=== PATIENT | female | born 1940 | race Caucasian/White ===

== ENCOUNTER 2018-12-07 21:01 | Emergency (ER) | payer MEDICARE, BC ==
[~2018-12-07] VITALS: Ht 149.9 cm; Wt 41.0 kg
[2018-12-07 21:09] VITALS: BP 131/84
--- NOTE | 2018-12-07 21:41 | NUR ---
Pt requested not to answer any questions right now. Her son is in the ICU. Unable to complete assessment. Niece at bedside.
[2018-12-07] MEDS ORDERED: guaiFENesin/codeine phos 10ml UD oral syrup PO ONE (22:10)
[2018-12-07] MEDS ORDERED: AZIT250T2 PO (22:12)
[2018-12-07] MEDS ORDERED: CODE473L3 PO (22:12)
== END 2018-12-07 22:47 | disposition home or self-care (01) ==
LOC: ER 21:02
DX: R05 Cough (principal); Z79.2 Long term (current) use of antibiotics; Z88.8 Allergy status to other drugs, medicaments and biological substances; Z88.0 Allergy status to penicillin
CPT/HCPCS: 71045; 99283

== ENCOUNTER 2020-05-04 09:04 | Emergency (ER) | payer BC, MEDICARE ==
[~2020-05-04 09:04] MED LIST: CODE473L3 PO
[2020-05-04 09:11] VITALS: BP 129/90
--- NOTE | 2020-05-04 09:38 | NUR ---
While MD was at bedside, pt became agtitated and stated that she "needed to leave", then stated to her friend "he thinks nothing is wrong, so I need to leave". Pt was discharge ready, however left prior to receiving discharge instructions.
== END 2020-05-04 09:43 | disposition home or self-care (01) ==
LOC: ER 09:05
DX: F41.9 Anxiety disorder, unspecified (principal); R22.0 Localized swelling, mass and lump, head; Z88.8 Allergy status to other drugs, medicaments and biological substances
CPT/HCPCS: 99281

== ENCOUNTER 2020-08-07 13:13 | Emergency (ER) | payer BC ==
[~2020-08-07] VITALS: Ht 149.9 cm; Wt 45.3 kg
[2020-08-07] MEDS ORDERED: mineral oil 133ml enema RC PRN (15:55)
[2020-08-07] MEDS ORDERED: fentaNYL/PF 50MCG/1 ML 2ML syringe IV ONE (15:55)
[2020-08-07] MEDS: diatr meglu/diatrizoate 30ml oral sol.-(3 dose) bottle PO SCH ×3 (16:17→17:52)
[2020-08-07 16:19] LABS: BASOPHILS # (AUTO) 0.1 X10'3 (0-0.2); BASOPHILS % (AUTO) 0.8 % (0-1); EOSINOPHILS # (AUTO) 0.2 X10'3 (0-0.9); EOSINOPHILS % (AUTO) 2.3 % (0-6); HEMATOCRIT 36.9 % (35.0-45.0); HEMOGLOBIN 12.4 g/dl (12.0-16.0); LYMPHOCYTES # (AUTO) 1.5 X10'3 (1.1-4.8); LYMPHOCYTES % (AUTO) 22.7 % (21-51); MEAN CORPUSCULAR HEMOGLOBIN 31.5 PG (27.0-31.0); MEAN CORPUSCULAR HGB CONC 33.6 g/dL (33.0-36.5); MEAN CORPUSCULAR VOLUME 93.7 FL (78-98); MEAN PLATELET VOLUME 6.5 FL (7.4-10.4); MONOCYTES # (AUTO) 0.4 X10'3 (0-0.9); NEUTROPHILS # (AUTO) 4.6 X10'3 (1.8-7.7); NEUTROPHILS % (AUTO) 68.2 % (42-75); PLATELET COUNT 297 X10'3 (140-440); RED BLOOD COUNT 3.94 X10'6 (4.20-5.60); RED CELL DISTRIBUTION WIDTH 14.1 % (11.5-14.5); WHITE BLOOD COUNT 6.7 X10'3 (4.5-11.0)
[2020-08-07 16:34] LABS: ALANINE AMINOTRANSFERASE 21 U/L (12-78); ALBUMIN 3.7 G/DL (3.4-5.0); ALBUMIN/GLOBULIN RATIO 1.1 (1.1-1.5); ALKALINE PHOSPHATASE 91 IU/L (46-116); ANION GAP 10 (8-16); ASPARTATE AMINO TRANSFERASE 22 U/L (10-37); BILIRUBIN,TOTAL 0.7 MG/DL (0.1-1.0); BLOOD UREA NITROGEN 12 MG/DL (7-18); BUN/CREATININE RATIO 17.9 (6.6-38.0); CHLORIDE 106 MMOL/L (99-107); CREATININE 0.67 MG/DL (0.40-0.90); GLUCOSE 139 MG/DL (70-104); POTASSIUM 3.9 MMOL/L (3.5-5.1); SODIUM 143 MMOL/L (135-145); TOTAL CARBON DIOXIDE 27.4 MMOL/L (24-32); eGFR 85 ML/MIN
[2020-08-07] MEDS ORDERED: iohexol 300mg/ml 100ml inj. ONE (16:39)
--- NOTE | 2020-08-07 17:07 | NUR ---
Enema administered to patient, no BM. Dr. Peace aware.
[2020-08-07 18:34] LABS: CLARITY,URINE SLIGHTLY CLOUDY (Clear); COLOR,URINE YELLOW (Yellow); GLUCOSE, URINE NEGATIVE (Neg); KETONES,URINE NEGATIVE (Neg); LEUKOCYTE ESTERASE ,URINE TRACE (Neg); NITRITES, URINE NEGATIVE (Neg); OCCULT BLOOD,URINE NEGATIVE (Neg); PH,URINE 7.5 (4.8-8.0); PROTEIN,URINE NEGATIVE (Neg); UROBILINOGEN,URINE 0.2 E.U/dL (0.2-1.0)
[2020-08-07 18:48] LABS: UA COLLECTION TYPE CLN CATCH MIDSTREAM
[2020-08-07 18:59] LABS: BACTERIA,URINE FEW /HPF (Neg); MUCUS STRANDS NONE SEEN /LPF (Neg); RBC,URINE NONE SEEN /HPF (0-2); WBC,URINE 0-4 /HPF (0-4)
[2020-08-07 19:01] LABS: SQUAMOUS EPITHELIAL CELL,UR FEW /LPF (FEW)
[2020-08-07 19:20] VITALS: BP 107/78
== END 2020-08-07 19:22 | disposition home or self-care (01) ==
LOC: ER 13:14
DX: K59.00 Constipation, unspecified (principal); R11.0 Nausea; K62.89 Other specified diseases of anus and rectum; R10.84 Generalized abdominal pain; Z88.8 Allergy status to other drugs, medicaments and biological substances; Z79.899 Other long term (current) drug therapy
CPT/HCPCS: 36415; 74177; 80053; 81001; 85025; 87088; 96374; 99285; J3010; Q9963; Q9967; 87077; 87186

== ENCOUNTER 2020-10-21 23:38 | Emergency (ER) | payer BC ==
[~2020-10-21] VITALS: Ht 152.4 cm; Wt 59.1 kg
[2020-10-21 23:41] VITALS: BP 157/122
--- NOTE | 2020-10-22 00:17 | NUR ---
Patient complains of anxiety prior to arrival because she wasn't wearing her special eye protection. She reports no symptoms at all at this time.
[2020-10-22] MEDS ORDERED: acetaminophen 325mg tablet PO ONE (01:25)
== END 2020-10-22 02:09 | disposition home or self-care (01) ==
LOC: ER 23:38
DX: R07.89 Other chest pain (principal); F41.9 Anxiety disorder, unspecified; R07.81 Pleurodynia; Z88.8 Allergy status to other drugs, medicaments and biological substances; Z79.899 Other long term (current) drug therapy
CPT/HCPCS: 71045; 99283

== ENCOUNTER 2024-04-09 11:31 | Emergency (ER) | payer BC ==
[~2024-04-09] VITALS: Ht 149.9 cm; Wt 2.2 kg
[2024-04-09 11:35] VITALS: TEMP 98.4
[2024-04-09 12:01] LABS: BASOPHILS % (AUTO) 0.8 % (0-1); EOSINOPHILS # (AUTO) 0.2 X10'3 (0-0.9); EOSINOPHILS % (AUTO) 3.6 % (0-6); HEMOGLOBIN 13.9 g/dl (12.0-16.0); LYMPHOCYTES # (AUTO) 1.4 X10'3 (1.1-4.8); MEAN CORPUSCULAR HEMOGLOBIN 31.9 PG (27.0-31.0); MEAN CORPUSCULAR HGB CONC 33.2 g/dL (33.0-36.5); MEAN PLATELET VOLUME 6.6 FL (7.4-10.4); MONOCYTES # (AUTO) 0.3 X10'3 (0-0.9); NEUTROPHILS # (AUTO) 3.6 X10'3 (1.8-7.7); NEUTROPHILS % (AUTO) 64.6 % (42-75); PLATELET COUNT 334 X10'3 (140-440); RED BLOOD COUNT 4.37 X10'6 (4.20-5.60); RED CELL DISTRIBUTION WIDTH 14.7 % (11.5-14.5); WHITE BLOOD COUNT 5.6 X10'3 (4.5-11.0)
[2024-04-09 12:14] LABS: ALANINE AMINOTRANSFERASE 21 U/L (12-78); ALBUMIN 3.1 G/DL (3.4-5.0); ALBUMIN/GLOBULIN RATIO 0.9 (1.1-1.5); ALKALINE PHOSPHATASE 112 IU/L (46-116); ANION GAP 4 (8-16); ASPARTATE AMINO TRANSFERASE 23 U/L (10-37); BILIRUBIN,TOTAL 0.6 MG/DL (0.1-1.0); BLOOD UREA NITROGEN 10 MG/DL (7-18); BUN/CREATININE RATIO 14.9 (10.0-20.0); CALCIUM 8.6 MG/DL (8.5-10.1); CHLORIDE 106 MMOL/L (99-107); CREATININE 0.67 MG/DL (0.40-0.90); GLUCOSE 109 MG/DL (70-104); POTASSIUM 3.5 MMOL/L (3.5-5.1); SODIUM 141 MMOL/L (135-145); TOTAL CARBON DIOXIDE 30.7 MMOL/L (24-32); TOTAL PROTEIN 6.4 G/DL (6.4-8.2); eCRCL 2 ML/MIN; eGFR 84 ML/MIN
[2024-04-09 12:21] LABS: PRO BRAIN NATRIURETIC PEPTIDE 103 PG/ML (0-450)
[2024-04-09 12:49] LABS: BILIRUBIN,URINE NEGATIVE (Neg); CLARITY,URINE CLEAR (Clear); COLOR,URINE YELLOW (Yellow); GLUCOSE, URINE NEGATIVE (Neg); KETONES,URINE NEGATIVE (Neg); LEUKOCYTE ESTERASE ,URINE NEGATIVE (Neg); NITRITES, URINE NEGATIVE (Neg); OCCULT BLOOD,URINE TRACE-INTACT (Neg); PROTEIN,URINE 100 mg/dl (Neg); UROBILINOGEN,URINE 0.2 E.U/dL (0.2-1.0)
[2024-04-09 12:54] LABS: UA COLLECTION TYPE NON-SPECIFIED
[2024-04-09 12:55] LABS: BACTERIA,URINE 1+ /HPF (Neg); SQUAMOUS EPITHELIAL CELL,UR FEW /LPF (FEW); WBC,URINE 0-4 /HPF (0-4)
[2024-04-09 13:23] LABS: THYROID STIMULATING HORMONE 31.83 ulU/ml (0.34-4.50)
[2024-04-09] MEDS: acetaminophen 325mg tablet PO ONE (13:48)
[2024-04-09 14:00] VITALS: BP 150/98; PULSE 72; RESP 15; O2SAT 95
== END 2024-04-09 14:00 | disposition home or self-care (01) ==
LOC: ER 11:32
DX: I48.0 Paroxysmal atrial fibrillation (principal); E07.9 Disorder of thyroid, unspecified; Z88.8 Allergy status to other drugs, medicaments and biological substances
CPT/HCPCS: 36415; 70450; 71045; 80053; 81001; 83880; 84145; 84443; 84484; 85025; 93005; 99285

== ENCOUNTER 2024-04-13 12:56 | Inpatient (IN) | payer BC ==
[~2024-04-13] VITALS: Ht 149.9 cm; Wt 36.3 kg
[2024-04-13 13:59] LABS: BASOPHILS # (AUTO) 0.1 X10'3 (0-0.2); BASOPHILS % (AUTO) 1.2 % (0-1); EOSINOPHILS # (AUTO) 0.2 X10'3 (0-0.9); EOSINOPHILS % (AUTO) 3.5 % (0-6); HEMOGLOBIN 13.4 g/dl (12.0-16.0); LYMPHOCYTES # (AUTO) 1.4 X10'3 (1.1-4.8); LYMPHOCYTES % (AUTO) 25.4 % (21-51); MEAN CORPUSCULAR HGB CONC 33.4 g/dL (33.0-36.5); MEAN CORPUSCULAR VOLUME 95.8 FL (78-98); MEAN PLATELET VOLUME 6.9 FL (7.4-10.4); MONOCYTES # (AUTO) 0.4 X10'3 (0-0.9); MONOCYTES % (AUTO) 7.7 % (2-12); NEUTROPHILS # (AUTO) 3.3 X10'3 (1.8-7.7); NEUTROPHILS % (AUTO) 62.2 % (42-75); PLATELET COUNT 337 X10'3 (140-440); RED BLOOD COUNT 4.17 X10'6 (4.20-5.60); RED CELL DISTRIBUTION WIDTH 15.1 % (11.5-14.5); WHITE BLOOD COUNT 5.4 X10'3 (4.5-11.0)
[2024-04-13 14:13] LABS: ALBUMIN 2.9 G/DL (3.4-5.0); ANION GAP 4 (8-16); BLOOD UREA NITROGEN 16 MG/DL (7-18); BUN/CREATININE RATIO 25.8 (10.0-20.0); CALCIUM 8.7 MG/DL (8.5-10.1); CHLORIDE 106 MMOL/L (99-107); CREATININE 0.62 MG/DL (0.40-0.90); GLUCOSE 86 MG/DL (70-104); MAGNESIUM 2.3 MG/DL (1.5-2.4); POTASSIUM 3.9 MMOL/L (3.5-5.1); PRO BRAIN NATRIURETIC PEPTIDE 110 PG/ML (0-450); SODIUM 141 MMOL/L (135-145); TOTAL CARBON DIOXIDE 30.9 MMOL/L (24-32); eCRCL 40 ML/MIN; eGFR > 90 ML/MIN
[2024-04-13] MEDS ORDERED: ACYC-129 PO (14:16)
[2024-04-13] MEDS ORDERED: LEVO100T9 PO (14:16)
[2024-04-13] MEDS: HYDROcodone/acetaminophen 10/325mg tab PO ONE (16:26)
[2024-04-13] MEDS: LORazepam 0.5 MG tablet PO PRN (16:27)
[2024-04-13] MEDS ORDERED: magnesium Cl slow-release 64mg tablet PO PRN (16:40)
[2024-04-13] MEDS ORDERED: acetaminophen 325mg tablet PO PRN (16:40)
[2024-04-13] MEDS ORDERED: magnesium sulf-water 4G/100mL 100 ML IV PRN (16:40)
[2024-04-13] MEDS ORDERED: magnesium sulf-water 2g/50mL 50 ML IV PRN (16:40)
[2024-04-13] MEDS ORDERED: morphine 2 MG/ML inj. syringe IV PRN (16:40)
[2024-04-13] MEDS ORDERED: potassium Cl 20 mEq SR tablet PO PRN ×2 (16:40)
[2024-04-13] MEDS ORDERED: potassium Cl 40MEQ/1/2NS 520ml 520 ML IV PRN (16:40)
[2024-04-13] MEDS: PERFLUTREN PROTEIN-A MICROSPHR (Optison) 0.22 MG/ML 3ML VIAL IV ONE (19:12)
[2024-04-13] MEDS: K and/or MAG REPLACEMENT MC SCH (20:00)
[2024-04-14 07:42] LABS: ALBUMIN 2.6 G/DL (3.4-5.0); ANION GAP 6 (8-16); BLOOD UREA NITROGEN 11 MG/DL (7-18); CHLORIDE 105 MMOL/L (99-107); CREATININE 0.61 MG/DL (0.40-0.90); GLUCOSE 78 MG/DL (70-104); MAGNESIUM 2.2 MG/DL (1.5-2.4); POTASSIUM 3.8 MMOL/L (3.5-5.1); SODIUM 138 MMOL/L (135-145); TOTAL CARBON DIOXIDE 27.1 MMOL/L (24-32); eCRCL 41 ML/MIN; eGFR > 90 ML/MIN
[2024-04-14 08:31] LABS: BASOPHILS % (AUTO) 0.9 % (0-1); EOSINOPHILS # (AUTO) 0.2 X10'3 (0-0.9); EOSINOPHILS % (AUTO) 4.2 % (0-6); HEMATOCRIT 40.5 % (35.0-45.0); HEMOGLOBIN 13.4 g/dl (12.0-16.0); LYMPHOCYTES # (AUTO) 1.5 X10'3 (1.1-4.8); MEAN CORPUSCULAR HEMOGLOBIN 32.1 PG (27.0-31.0); MEAN CORPUSCULAR HGB CONC 33.1 g/dL (33.0-36.5); MEAN CORPUSCULAR VOLUME 96.9 FL (78-98); MEAN PLATELET VOLUME 6.8 FL (7.4-10.4); MONOCYTES # (AUTO) 0.4 X10'3 (0-0.9); MONOCYTES % (AUTO) 6.9 % (2-12); NEUTROPHILS # (AUTO) 3.1 X10'3 (1.8-7.7); PLATELET COUNT 236 X10'3 (140-440); RED BLOOD COUNT 4.18 X10'6 (4.20-5.60); RED CELL DISTRIBUTION WIDTH 15.1 % (11.5-14.5); WHITE BLOOD COUNT 5.2 X10'3 (4.5-11.0)
[2024-04-14 10:00] VITALS: BP 126/90; PULSE 74; RESP 17; TEMP 97.8; O2SAT 95
[2024-04-14] MEDS: HYDROcodone/acetaminophen 5mg/325mg tablet PO PRN (15:03)
[2024-04-14] MEDS: meclizine 12.5mg tablet PO ONE (16:10)
[2024-04-14] MEDS: LORazepam 0.5 MG tablet PO PRN (16:30)
[2024-04-14] MEDS ORDERED: PRED5DRO3 OP (18:48)
[2024-04-14 19:00] VITALS: BP 117/74; PULSE 69; RESP 16; TEMP 97.8; O2SAT 96
[2024-04-14] MEDS ORDERED: MED LIST UNOBTAINABL OP (19:05)
[2024-04-14 20:00] VITALS: BP_SYST 119; BP_SYST 132; BP_SYST 138; BP_DIAS 77; BP_DIAS 80; BP_DIAS 96; PULSE 63; PULSE 67; PULSE 77
[2024-04-14] MEDS: heparin, porcine 5000 units/ml vial SQ SCH (21:10)
[2024-04-14 22:00] VITALS: BP 138/80; PULSE 63; RESP 18; TEMP 97.6; O2SAT 95
[2024-04-15 06:00] VITALS: BP 129/76; PULSE 57; RESP 15; TEMP 96.1; O2SAT 98
[2024-04-15 06:52] LABS: BASOPHILS # (AUTO) 0.1 X10'3 (0-0.2); EOSINOPHILS # (AUTO) 0.2 X10'3 (0-0.9); MONOCYTES # (AUTO) 0.4 X10'3 (0-0.9); NEUTROPHILS # (AUTO) 2.5 X10'3 (1.8-7.7); RED CELL DISTRIBUTION WIDTH 14.8 % (11.5-14.5); WHITE BLOOD COUNT 4.7 X10'3 (4.5-11.0)
[2024-04-15 06:54] LABS: EOSINOPHILS % (AUTO) 3.5 % (0-6); HEMATOCRIT 39.3 % (35.0-45.0); HEMOGLOBIN 13.1 g/dl (12.0-16.0); LYMPHOCYTES # (AUTO) 1.6 X10'3 (1.1-4.8); MEAN CORPUSCULAR HEMOGLOBIN 32.1 PG (27.0-31.0); MEAN CORPUSCULAR HGB CONC 33.4 g/dL (33.0-36.5); MEAN CORPUSCULAR VOLUME 96.2 FL (78-98); MEAN PLATELET VOLUME 6.6 FL (7.4-10.4); MONOCYTES % (AUTO) 8.4 % (2-12); NEUTROPHILS % (AUTO) 53.1 % (42-75); PLATELET COUNT 302 X10'3 (140-440); RED BLOOD COUNT 4.09 X10'6 (4.20-5.60)
[2024-04-15 07:33] LABS: ALBUMIN 2.4 G/DL (3.4-5.0); ANION GAP 2 (8-16); BLOOD UREA NITROGEN 15 MG/DL (7-18); CALCIUM 8.1 MG/DL (8.5-10.1); CHLORIDE 104 MMOL/L (99-107); CREATININE 0.75 MG/DL (0.40-0.90); GLUCOSE 79 MG/DL (70-104); MAGNESIUM 2.2 MG/DL (1.5-2.4); POTASSIUM 3.9 MMOL/L (3.5-5.1); SODIUM 136 MMOL/L (135-145); TOTAL CARBON DIOXIDE 29.8 MMOL/L (24-32); eCRCL 33 ML/MIN; eGFR 74 ML/MIN
[2024-04-15 07:36] LABS: THYROID STIMULATING HORMONE 69.22 ulU/ml (0.34-4.50)
[2024-04-15 07:45] VITALS: RESP 18
[2024-04-15] MEDS: levoTHYROXINE 100mcg tablet PO SCH (07:47)
[2024-04-15 10:00] VITALS: BP 102/71; PULSE 63; RESP 14; TEMP 98.1; O2SAT 95
[2024-04-15 11:18] LABS: FREE T4 (FREE THYROXINE) 0.66 NG/DL (0.73-1.40)
[2024-04-15] MEDS: LORazepam 2 mg/ml vial IM ONE (14:45)
[2024-04-15] MEDS: LEVOTHYROXINE SODIUM 100 MCG/5 ML injection IV ONE (16:01)
[2024-04-15 18:00] VITALS: BP 128/74; PULSE 69; RESP 16; TEMP 97.7; O2SAT 95
[2024-04-15] MEDS: lactose-reduced food (Ensure Enlive) - 237ml bottle PO SCH (18:00)
[2024-04-15 20:00] VITALS: BP_SYST 102; BP_SYST 123; BP_SYST 130; BP_DIAS 65; BP_DIAS 77; BP_DIAS 88; PULSE 71; PULSE 72; PULSE 78
[2024-04-15] MEDS ORDERED: PRED5DRO23 EACHEYE (20:56)
[2024-04-15] MEDS: Prednisolone Acet 1% Eye Drop EACHEYE PRN (21:37)
[2024-04-15 22:00] VITALS: BP 123/65; PULSE 71; RESP 15; TEMP 97.7; O2SAT 97
[2024-04-16] VITALS (10 sets, daily range): BP systolic 100–154; BP diastolic 65–94; PULSE 63–85; RESP 13–16; TEMP 97.1–98.7; O2SAT 94–98
[2024-04-16 06:11] LABS: ALBUMIN 2.5 G/DL (3.4-5.0); ANION GAP 4 (8-16); BLOOD UREA NITROGEN 16 MG/DL (7-18); BUN/CREATININE RATIO 30.2 (10.0-20.0); CALCIUM 8.4 MG/DL (8.5-10.1); CHLORIDE 106 MMOL/L (99-107); CREATININE 0.53 MG/DL (0.40-0.90); GLUCOSE 87 MG/DL (70-104); MAGNESIUM 2.1 MG/DL (1.5-2.4); POTASSIUM 3.7 MMOL/L (3.5-5.1); SODIUM 139 MMOL/L (135-145); TOTAL CARBON DIOXIDE 29.1 MMOL/L (24-32); eCRCL 47 ML/MIN; eGFR > 90 ML/MIN
[2024-04-16 06:19] LABS: BASOPHILS # (AUTO) 0.1 X10'3 (0-0.2); BASOPHILS % (AUTO) 1.4 % (0-1); EOSINOPHILS # (AUTO) 0.1 X10'3 (0-0.9); EOSINOPHILS % (AUTO) 3.4 % (0-6); HEMATOCRIT 39.2 % (35.0-45.0); HEMOGLOBIN 13.1 g/dl (12.0-16.0); LYMPHOCYTES # (AUTO) 1.4 X10'3 (1.1-4.8); LYMPHOCYTES % (AUTO) 36.3 % (21-51); MEAN CORPUSCULAR HEMOGLOBIN 31.9 PG (27.0-31.0); MEAN CORPUSCULAR HGB CONC 33.5 g/dL (33.0-36.5); MEAN CORPUSCULAR VOLUME 95.2 FL (78-98); MEAN PLATELET VOLUME 6.7 FL (7.4-10.4); MONOCYTES # (AUTO) 0.3 X10'3 (0-0.9); MONOCYTES % (AUTO) 8.2 % (2-12); NEUTROPHILS % (AUTO) 50.7 % (42-75); PLATELET COUNT 297 X10'3 (140-440); RED BLOOD COUNT 4.12 X10'6 (4.20-5.60); RED CELL DISTRIBUTION WIDTH 14.7 % (11.5-14.5); WHITE BLOOD COUNT 3.9 X10'3 (4.5-11.0)
[2024-04-16] MEDS: levoTHYROXINE 75mcg tablet PO SCH (07:00)
[2024-04-16] MEDS: [UNRECOGNIZED DRUG - OTHER] EACHEYE SCH (12:40)
[2024-04-16] MEDS: ketorolac trometh 30MG/ML vial 30 MG/ML VIAL IV PRN (13:16)
[2024-04-16] MEDS: sennosides/docusate sodium tablet PO SCH (16:41)
[2024-04-16] MEDS: docusate sod 100mg capsule PO STA (20:28)
[2024-04-16] MEDS: ondansetron/PF 4mg/2ml inj IV PRN (20:37)
[2024-04-17 01:00] VITALS: BP_SYST 108; BP_SYST 117; BP_DIAS 69; BP_DIAS 82
[2024-04-17] MEDS: bisacodyl 10mg suppository rectal RC STA (04:54)
[2024-04-17 06:00] VITALS: BP 117/73; PULSE 56; RESP 15; TEMP 96.8; O2SAT 95
[2024-04-17 06:36] LABS: BASOPHILS # (AUTO) 0.1 X10'3 (0-0.2); BASOPHILS % (AUTO) 0.8 % (0-1); EOSINOPHILS # (AUTO) 0.2 X10'3 (0-0.9); EOSINOPHILS % (AUTO) 2.2 % (0-6); HEMATOCRIT 41.5 % (35.0-45.0); HEMOGLOBIN 13.9 g/dl (12.0-16.0); LYMPHOCYTES # (AUTO) 0.9 X10'3 (1.1-4.8); LYMPHOCYTES % (AUTO) 11.4 % (21-51); MEAN CORPUSCULAR HEMOGLOBIN 32.5 PG (27.0-31.0); MEAN CORPUSCULAR HGB CONC 33.5 g/dL (33.0-36.5); MONOCYTES # (AUTO) 0.5 X10'3 (0-0.9); MONOCYTES % (AUTO) 5.9 % (2-12); NEUTROPHILS # (AUTO) 6.5 X10'3 (1.8-7.7); NEUTROPHILS % (AUTO) 79.7 % (42-75); PLATELET COUNT 304 X10'3 (140-440); RED BLOOD COUNT 4.28 X10'6 (4.20-5.60); RED CELL DISTRIBUTION WIDTH 14.9 % (11.5-14.5); WHITE BLOOD COUNT 8.1 X10'3 (4.5-11.0)
[2024-04-17 06:48] LABS: ALBUMIN 2.7 G/DL (3.4-5.0); ANION GAP 5 (8-16); BLOOD UREA NITROGEN 22 MG/DL (7-18); BUN/CREATININE RATIO 34.9 (10.0-20.0); CHLORIDE 102 MMOL/L (99-107); CREATININE 0.63 MG/DL (0.40-0.90); GLUCOSE 129 MG/DL (70-104); MAGNESIUM 2.1 MG/DL (1.5-2.4); SODIUM 136 MMOL/L (135-145); TOTAL CARBON DIOXIDE 29.4 MMOL/L (24-32); eCRCL 39 ML/MIN; eGFR 90 ML/MIN
[2024-04-17 08:59] VITALS: RESP 15; O2SAT 95
[2024-04-17 10:00] VITALS: BP_SYST 100; BP_SYST 111; BP_DIAS 65; BP_DIAS 67; PULSE 79; PULSE 92; RESP 18; TEMP 98.5; O2SAT 96
== END 2024-04-17 13:00 | DRG 149 ==
LOC: ER 12:56 → ED HOLD 16:43 → EDBEDREQ 04-14 02:57 → ORTHO 4S 04-14 09:31
PROVIDERS: ADMIT Internal Medicine; ATTEND Internal Medicine
DX: H81.10 Benign paroxysmal vertigo, unspecified ear (principal); E43 Unspecified severe protein-calorie malnutrition; Z68.1 Body mass index [BMI] 19.9 or less, adult; F41.9 Anxiety disorder, unspecified; M53.3 Sacrococcygeal disorders, not elsewhere classified; I48.91 Unspecified atrial fibrillation; G43.909 Migraine, unspecified, not intractable, without status migrainosus; E03.9 Hypothyroidism, unspecified; Z87.891 Personal history of nicotine dependence; Z88.8 Allergy status to other drugs, medicaments and biological substances; Z88.0 Allergy status to penicillin; Z91.199 Patient's noncompliance with other medical treatment and regimen due to unspecified reason; R55 Syncope and collapse
CPT/HCPCS: 36415; 70551; 71045; 72220; 80048; 83735; 83880; 84439; 84443; 84484; 85025; 93005; 93306; 93880; 97110; 97116; 97162; 97530; 99285; G0378; J1644; J1885; J2405; J3490; J8597

== ENCOUNTER 2024-11-29 12:06 | Emergency (ER) | payer BC ==
[~2024-11-29] VITALS: Ht 149.9 cm; Wt 37.7 kg
[~2024-11-29 12:06] MED LIST changes: -CODE473L3 PO; +LEVO100T9 PO; +MED LIST UNOBTAINABL OP; +PRED5DRO23 EACHEYE
--- NOTE | 2024-11-29 12:28 | Physician Documentation ---
History of Present Illness ~ Chief Complaint: Urinary Symptoms Stated Complaint: UTI Time Seen by MD: 12:19 OK to notify your PCP?: Yes Primary Medical Doctor: Residency Service Source: patient, RN/MD, EMS, RN notes reviewed, EMS notes reviewed, old records Mode of Arrival: EMS Exam Limitations: no limitations HPI This patient complains of four or five days of dysuria frequency urgency. She states when she pees at [place] and just comes out. She has a history of UTIs in the past. She denies any fevers or chills. No CVA tenderness or back pains does not feel 100% rate now feels a bit ill. She is otherwise in good health has no other complaints. She is now here for evaluation she came by ambulance she was seen in bed 9 Medication Reconciliation Allergies: Coded Allergies: lithium (Verified Allergy, Unknown, THROAT SWELLING, 11/29/24) Uncoded Allergies: PENICILLIN (Allergy, Unknown, THROAT SWELLING, 12/07/18) Scheduled Levothyroxine Sodium (Levothyroxine Sodium), 1 TAB PO DAILY, (Reported) Nitrofurantoin Macrocrystal (Nitrofurantoin), 1 CAP PO Q12H Non-Formulary (Med List Unobtainable), OP Q4H, (Reported) Phenazopyridine HCl (Pyridium), 1 TAB PO Q8H Scheduled PRN Prednisolone Acetate/Pf (Prednisolone Acet 1% Eye Drop), 1 DROP EACHEYE Q6H PRN for allergies, (Reported) Past Medical History Past Medical History: Glaucoma Past Surgical History: noncontributory Alcohol Use: None Drug Use: none Lives In: Home Review of Systems All Other Systems at this time: Reviewed and Negative Physical Exam Vital Signs: RN Vital Signs have been reviewed: Yes, Temperature: 97.6, Heart Rate: 100, Respiratory Rate: 16, BP: 124/90, Pulse Oximetry: 93, Weight: 37.730 Physical Exam General: The patient is well developed, well nourished, nontoxic appearing and is in no acute distress. Skin: [place], warm and dry with no rashes. HEENT: Head was normocephalic and atraumatic. Eyes - pupils equal, round, reactive to light and accommodation. Extraocular movements were intact. Conjunctivae were nonicteric. . The mouth and oropharynx were clear with moist mucous membranes. There were no pharyngeal exudates or erythema. Neck: Supple and nontender. There was no jugular venous distention, lymphadenopathy, thyromegaly or masses. Chest: Clear to auscultation bilaterally without wheezes, rales or rhonchi. No accessory muscle use. No dullness to percussion. Heart: Rate regular and rhythmic. S1, S2. No murmurs. Palpation of the chest wall was normal. No rubs or thrills. Abdomen: Soft, nontender and nondistended. Positive bowel sounds. No guarding or rebound. Back no CVA tenderness Extremities: No cyanosis, clubbing or edema. The patient moves all extremities. Pulses were equal and symmetric. Neurologic: Motor sensory grossly intact Psychologic: The patient was oriented to person, place and time. The patient demonstrated appropriate judgement and insight. Progress Results/Orders Reviewed/noted all lab results: Yes Results/Orders Orders - ANGUS ELAM MD Chest,Single View (11/29/24 13:30) Cult Urine + [address] (11/29/24 13:42) Electrocardiogram (11/29/24 14:06) Completed Orders - ANGUS ELAM MD Chest,Single View (11/29/24 13:30) Ua W/Microscopic, Cult If Ind (11/29/24 12:28) Phenazopyridine Tablet (Pyridium Tablet) (11/29/24 14:00) Nitrofur [place]/Nitrofuran Macr (Macrobid (11/29/24 14:17) Nitrofur [place]/Nitrofuran Macr (Macrobid (11/29/24 14:53) Medications Received in ER Medications (Trade) Dose Ordered Sig/Kera Route PRN Reason Start Time Stop Time Status Last Admin Dose Admin (Pyridium tablet) 200 mg ONCE ONCE PO 11/29/24 14:00 11/29/24 14:02 DC 11/29/24 14:47 200 MG (MacroBID capsule) 100 mg ONCE STAT PO 11/29/24 14:17 11/29/24 14:21 DC 11/29/24 14:47 100 MG Vital Signs 11/29/24 11/29/24 11/29/24 11/29/24 12:10 14:24 14:24 14:28 Temp 97.6 97.6 Pulse 100 91 92 Resp 16 16 16 16 B/P (MAP) 124/90 136/84 (101) 136/84 Pulse Ox 93 97 97 O2 Flow Rate 0 Laboratory Tests Test 11/29/24 12:28 Urine Specimen Description Non-specified Urine Color Yellow Urine Clarity Clear Urine pH 6.0 Urine Specific [place] >=1.030 Urine Protein >=300 H Urine Glucose (UA) Negative Urine Ketones 15 H Urine Occult Blood Moderate H Urine Nitrite Negative Urine Bilirubin Small Urine Urobilinogen 0.2 Urine Leukocyte Esterase Negative Urine RBC 3-10 Urine WBC 5-10 H Urine Squamous Epithelial Cells Few Urine Transitional Epithelial Cells Few Urine Bacteria 2+ Urine Hyaline Casts 0-3 Urine Fine Granular Casts 3-5 Urine Coarse Granular Casts 0-3 Urine Culture Indicated Indicated Volume Urine Centrifuged 10 ml Urine Comment Microbiology Date/Time Source Procedure Growth Status 11/29/24 13:42 Urine Nonspecified Urine Culture - Preliminary Culture received. Resulted Re-Evaluation Re-Evaluation : Re-Evaluation: Improved Progress Patient was seen and examined. Patient is given reassurance. The patient received antibiotics as well as Pyridium. Patient was found to have a UTI was discharged home with the same medications there was no pyelonephritis patient's urinalysis shows a specific gravity of 1.030 with some proteinuria ketonuria hematuria but also 3-10 RBCs 5-10 WBCs. Few squamous epithelial cells some transitional cells 2+ bacteria. This was a cath specimen so she will be receiving antibiotics. Per nurse the vaginal area did not look irritated or inflamed. Patient received antibiotics and was discharged home. EKG/XRAY/CT/US/VASC/MRI Chest X-Ray : Additional Comments CHEST RADIOGRAPH Indication: CHEST PAIN Technique: Single frontal view of the chest was obtained COMPARISON: DI CHEST,SINGLE VIEW on DOS: 04/13/24, DI CHEST,SINGLE VIEW on DOS: 04/09/24, CHEST,SINGLE VIEW on DOS: 10/22/20 FINDINGS: Lines and Tubes: None Lungs: Patchy bilateral lower lobe airspace disease. Pleura: No effusion. No pneumothorax. Cardiomediastinal contours: Unremarkable Bones: Unremarkable IMPRESSION: Patchy bilateral lower lobe airspace disease. Electronically Signed by:YASIR TOM MD Medical Decision Making Additional info obtained from: old records Urinary Diff Dx:Considerations: Include: Pancreatitis, Pyelonephritis, Urolithiasis, Urinary retention, UTI, Vaginitis, Other Departure Disposition: 01 HOME / SELF CARE / HOMELESS Impression: Primary Impression: Acute urinary tract infection Condition: Stable Discharge Instructions: Urinary Tract Infection, Adult Referrals: NO PRIMARY CARE PROVIDER (PCP) Prescriptions Phenazopyridine HCl (Pyridium) 100 Mg Tablet 1 TAB PO Q8H for urinary discomfort for 2 Days, #6 TAB 0 Refills Prov: ANGUS ELAM MD 11/29/24 Nitrofurantoin Macrocrystal (Nitrofurantoin) 100 Mg Capsule 1 CAP PO Q12H for 7 Days, #14 CAP 0 Refills Prov: ANGUS ELAM MD 11/29/24 Education Educated: Patient Educated regarding: diagnosis, need for follow up Signature Scribe Signature: No scribed Attestation: The note accurately reflects work and decisions made by me.Angus Elam MD 11/29/24 12:28 ANGUS ELAM MD November 29, 2024 12:28
[2024-11-29 13:23] LABS: BILIRUBIN,URINE SMALL (Neg); CLARITY,URINE CLEAR (Clear); COLOR,URINE YELLOW (Yellow); GLUCOSE, URINE NEGATIVE (Neg); KETONES,URINE 15 mg/dl (Neg); LEUKOCYTE ESTERASE ,URINE NEGATIVE (Neg); NITRITES, URINE NEGATIVE (Neg); OCCULT BLOOD,URINE MODERATE (Neg); PROTEIN,URINE >=300 mg/dl (Neg); UROBILINOGEN,URINE 0.2 E.U/dL (0.2-1.0)
[2024-11-29] MEDS ORDERED: normal saline 1000ML IV soln IVB ONE (13:30)
[2024-11-29 13:34] LABS: UA COLLECTION TYPE NON-SPECIFIED
[2024-11-29 13:35] LABS: BACTERIA,URINE 2+ /HPF (Neg); SQUAMOUS EPITHELIAL CELL,UR FEW /LPF (FEW)
[2024-11-29] MEDS ORDERED: LORazepam 2 mg/ml vial IV ONE (13:35)
[2024-11-29 13:36] LABS: TRANSITIONAL EPI CELLS,URINE FEW /HPF
[2024-11-29 13:42] LABS: COARSE GRANULAR CAST 0-3 /LPF (NEGATIVE); HYALINE CASTS 0-3 /LPF (NEGATIVE)
--- NOTE | 2024-11-29 13:49 | RADIOLOGY REPORT ---
CHEST RADIOGRAPH Indication: CHEST PAIN Technique: Single frontal view of the chest was obtained COMPARISON: DI CHEST,SINGLE VIEW on DOS: 04/13/24, DI CHEST,SINGLE VIEW on DOS: 04/09/24, CHEST,SINGLE VIEW on DOS: 10/22/20 FINDINGS: Lines and Tubes: None Lungs: Patchy bilateral lower lobe airspace disease. Pleura: No effusion. No pneumothorax. Cardiomediastinal contours: Unremarkable Bones: Unremarkable IMPRESSION: Patchy bilateral lower lobe airspace disease.
[2024-11-29] MEDS ORDERED: nitrofurantoin macrocrystal 100mg capsule PO STA (14:00)
[2024-11-29] MEDS ORDERED: NITR100C PO (14:04)
[2024-11-29] MEDS ORDERED: PHEN-824 PO (14:04)
[2024-11-29 14:24] VITALS: TEMP 97.6
[2024-11-29 14:28] VITALS: BP 136/84; PULSE 92; RESP 16; O2SAT 97
[2024-11-29] MEDS: phenazopyridine 100mg tablet PO ONE (14:47)
[2024-11-29] MEDS: nitrofuran monohydrate/nitrofuran macrocrysal 100 MG (MacroBID) capsule PO STA ×2 (14:47→15:25)
--- NOTE | 2024-11-29 16:12 | ELECTROCARDIOGRAPH REPORT ---
[facility] Test Date: 2024-11-29 Test Time: 13:49:40 Pat Name: MAGALY OBREGON Department: EMERGENCY ROOM Room: Gender: F Project Program Manager: TOM : 1940 Requested By: LARA RENAE Order Number: [id number] Reading MD: Dr. Lara Renae Measurements Intervals [place] Rate: 88 P: 36 OR: 123 QRS: 73 QRSD: 88 T: 28 QT: 371 QTc: 449 Interpretive Statements Sinus rhythm Electronically Signed On 11-29-2024 18:10:[address] Lara Renae Please click the below link to view image of tracing.
== END 2024-11-29 15:32 | disposition home or self-care (01) ==
LOC: ER 12:06
DX: N39.0 Urinary tract infection, site not specified (principal); R07.9 Chest pain, unspecified
CPT/HCPCS: 71045; 81001; 87088; 93005; 99285; C1758

== ENCOUNTER 2024-12-04 09:19 | Emergency (ER) | payer BC ==
[~2024-12-04] VITALS: Ht 149.9 cm; Wt 47.0 kg
[~2024-12-04 09:19] MED LIST changes: +NITR100C PO; +PHEN-824 PO
[2024-12-04 09:26] VITALS: BP 101/73; PULSE 83; RESP 16; TEMP 98.4; O2SAT 97
--- NOTE | 2024-12-04 11:04 | Physician Documentation ---
History of Present Illness ~ Chief Complaint: Flank Pain Stated Complaint: UTI/DRY MOUTH Time Seen by MD: 09:38 Primary Medical Doctor: Residency Service HPI Patient is seen today with complaints of flank pain. Patient states she was seen a week ago and prescribed antibiotics but was not able to pick them up and is back again today with similar complaints of flank pain. Patient denies any fevers or chills and does admit to some dysuria and has no other concern or complaint at this time. Patient denies any chest pain or shortness of breath or abdominal pain or nausea, vomiting, diarrhea. Medication Reconciliation Allergies: Coded Allergies: lithium (Verified Allergy, Unknown, THROAT SWELLING, 11/29/24) Uncoded Allergies: PENICILLIN (Allergy, Unknown, THROAT SWELLING, 12/07/18) Scheduled Levothyroxine Sodium (Levothyroxine Sodium), 1 TAB PO DAILY, (Reported) Nitrofurantoin Macrocrystal (Nitrofurantoin), 1 CAP PO Q12H Non-Formulary (Med List Unobtainable), OP Q4H, (Reported) Phenazopyridine HCl (Pyridium), 1 TAB PO Q8H Scheduled PRN Prednisolone Acetate/Pf (Prednisolone Acet 1% Eye Drop), 1 DROP EACHEYE Q6H PRN for allergies, (Reported) Past Medical History Past Medical History: Glaucoma Past Surgical History: noncontributory Alcohol Use: None Drug Use: none Lives In: Home Review of Systems Constitutional: Denies: chills, fever, weakness Eyes: Denies: pain, blurred vision ENT: Denies: ear pain, nose pain, throat pain, mouth pain Respiratory: Denies: cough, shortness of breath Cardiovascular: Denies: chest pain, palpitations Gastrointestinal: Denies: abdominal pain, nausea, vomiting Genitourinary: Denies: burning, dysuria Female Genitalia: Denies: vaginal discharge, pelvic pain Neurological: Denies: headache, dizziness Musculoskeletal: Denies: pain, swelling Integumentary: Denies: rash, lesions Allergic/Immunologic: Denies: hives, itching Hematologic/Lymphatic: Denies: no symptoms reported Psychiatric: Denies: depression, anxiety Physical Exam Vital Signs: Temperature: 98.4, Source: Oral, Heart Rate: 83, Respiratory Rate: 16, BP: 101/73, Pulse Oximetry: 97, Weight: 47.000 Oxygen Flow Rate: 0 Physical Exam General: Awake and Alert, no acute distress. HEENT: Conjunctiva pink, Sclera clear, Mucus Membranes moist. Neck: Supple without masses and tenderness. Resp: Unlabored. Lungs clear to auscultation bilaterally. Heart: Regular Rate and rhythm, normal S1 and S2 without murmur, rub or gallop. Abdomen: Patient on exam does not have any significant CVA tenderness on either side. Soft and non tender no organomegaly Extremities: No cyanosis,clubbing or edema. Skin: Warm and Dry. Progress Results/Orders Results/Orders Vital Signs 12/04/24 09:26 Temp 98.4 Pulse 83 Resp 16 B/P (MAP) 101/73 Pulse Ox 97 O2 Flow Rate 0 Medical Decision Making Findings Patient is seen today with complaints of flank pain. Patient states she was seen a week ago and prescribed antibiotics but was not able to pick them up and is back again today with similar complaints of flank pain. Patient denies any fevers or chills and does admit to some dysuria and has no other concern or complaint at this time. Patient denies any chest pain or shortness of breath or abdominal pain or nausea, vomiting, diarrhea. I strongly advised patient picker packer her prescription from the pharmacy that was previously prescribed. Patient voiced understanding. Patient will return to ED with any worsening, concerning or changing symptoms. Departure Disposition: 07 LEFT AWOL/ELOPED Impression: Primary Impression: Acute urinary tract infection Condition: Stable Discharge Instructions: Pyelonephritis, Adult Additional Instructions: I strongly advised patient picker packer her prescription from the pharmacy that was previously prescribed. Patient voiced understanding. Patient will return to ED with any worsening, concerning or changing symptoms. Referrals: NO PRIMARY CARE PROVIDER (PCP) Signature Scribe Signature: No scribe Attestation: No scribe EZRA MARTINEZ Dec 04, 2024 11:04
== END 2024-12-04 11:05 | disposition left against medical advice (07) ==
LOC: ER 09:20
DX: N39.0 Urinary tract infection, site not specified (principal); Z88.8 Allergy status to other drugs, medicaments and biological substances
CPT/HCPCS: 99283